=== PATIENT | male | born 1955 | race Caucasian/White ===

== ENCOUNTER 2019-05-22 07:44 | Emergency (ER) | payer MEDICAID ==
[~2019-05-22] VITALS: Ht 170.2 cm; Wt 81.6 kg
--- NOTE | 2019-05-22 07:44 | NUR ---
Patient BIBA BLS, transferred to bed 4. RN evaluating patient at bedside.
[2019-05-22 07:47] VITALS: BP 203/134
--- NOTE | 2019-05-22 07:54 | NUR ---
Dr. Sanchez is evaluating the patient at bedside.
[2019-05-22] MEDS ORDERED: MORPHINE SULFATE 2 MG/ML SYR IVP ONE (08:00)
[2019-05-22] MEDS ORDERED: hydrALAZINE 20 MG/ML VIAL IVP ONE ×2 (08:00→11:35)
--- NOTE | 2019-05-22 08:03 | NUR ---
EKG completed by EMT at bedside.
--- NOTE | 2019-05-22 08:15 | NUR ---
ivp pain meds/hbp meds given-NADR at this time.
--- NOTE | 2019-05-22 09:06 | NUR ---
Pt report given to Ying. Transfer of care at this time.
--- NOTE | 2019-05-22 09:08 | NUR ---
PT RESTING COMFORTABLY, BS CHECKED 113. VSS. PT STATES NO PAIN, FARRAR IS GONE.
--- NOTE | 2019-05-22 09:45 | NUR ---
PT STATES NO PAIN, RESTING COMFORTABLY, B/P MONITORED, CONTINUES TO GO DOWN SLOWL. MD NOTIFIED.
[2019-05-22] MEDS ORDERED: cloNIDine 0.1 MG TAB PO ONE (10:20)
--- NOTE | 2019-05-22 10:51 | NUR ---
PT AMBULATED TO RESTROOM W/O DIFFICULTY TO GIVE UA.
--- NOTE | 2019-05-22 10:55 | NUR ---
PT TO CT BY JAY.
--- NOTE | 2019-05-22 11:03 | NUR ---
Patient returned from CT scan. RN re-evaluating the patient at bedside.
[2019-05-22 12:22] VITALS: BP 156/88
--- NOTE | 2019-05-22 12:22 | NUR ---
Patient discharged with v/s stable. Written and verbal after care instructions given and explained. Patient alert, oriented and verbalized understanding of instructions. Ambulatory with steady gait. All questions addressed prior to discharge. ID band removed. Patient advised to follow up with PMD. Rx of MOTRIN, LISINOPRIL given. Patient educated on indication of medication including possible reaction and side effects. Opportunity to ask questions provided and answered.
== END 2019-05-22 12:22 | disposition home or self-care (01) ==
LOC: MED 07:44
DX: G44.209 Tension-type headache, unspecified, not intractable (principal); I10 Essential (primary) hypertension; Z86.73 Personal history of transient ischemic attack (TIA), and cerebral infarction without residual deficits
CPT/HCPCS: 70450; 82948; 93005; 96374; 96375; 96376; 99284; J0360; J2270

== ENCOUNTER 2022-11-09 10:19 | Emergency (ER) | payer MEDICAID ==
[~2022-11-09] VITALS: Ht 175.3 cm; Wt 79.4 kg
[2022-11-09 10:26] VITALS: BP 167/103; PULSE 62; RESP 18; TEMP 97.4; O2SAT 96
--- NOTE | 2022-11-09 10:30 | NUR ---
BIBA BLS TO ER BED 7
[2022-11-09 10:31] VITALS: O2SAT 96
--- NOTE | 2022-11-09 10:31 | NUR ---
67YO M FRANCO FROM [facility] C/O DIZZINESS X 2 HOURS. PT STATES HIS DIZZINESS HAS DECREASED DRAMATICALLY. PT DENIES N,V,D,C, FEVER, CHILLS, FARRAR, INJURY, FLU SYMPTOMS, URINARY SYMPTOMS, WEAKNESS. NAD NOTED. RAILS UP FOR SAFETY, CALL LIGHT WITHIN REACH. HX: HTN NKA
--- NOTE | 2022-11-09 11:44 | NUR ---
Patient discharged with v/s stable. Written and verbal after care instructions given and explained. Patient verbalized understanding. Ambulatory with steady gait. All questions addressed prior to discharge. Advised to follow up with PMD.
== END 2022-11-09 11:43 | disposition home or self-care (01) ==
LOC: MED 10:19
DX: R42 Dizziness and giddiness (principal); I10 Essential (primary) hypertension; Z86.73 Personal history of transient ischemic attack (TIA), and cerebral infarction without residual deficits
CPT/HCPCS: 93005; 99283